=== PATIENT | male | born 1960 | race Caucasian/White ===

== ENCOUNTER 2018-11-19 11:24 | Outpatient (CLI) | payer BC | END 2018-11-19 23:59 | disposition home or self-care (01) | LOC: STAR 11:24 | PROVIDERS: ATTEND Surgery Vascular Surgery | DX: Z01.818 Encounter for other preprocedural examination (principal); I71.4 Abdominal aortic aneurysm, without rupture; R94.31 Abnormal electrocardiogram [ECG] [EKG] | CPT/HCPCS: 36415; 80053; 85025; 93005 ==

== ENCOUNTER 2018-11-24 07:30 | Inpatient (IN) | payer BC ==
[~2018-11-24] VITALS: Ht 182.9 cm; Wt 101.3 kg
[2018-11-25 09:45] VITALS: BP 132/81
== END 2018-11-25 11:07 | disposition home or self-care (01) | DRG 269 ==
LOC: ORIP 10:59 → 4NOR 16:20 → DCLOUNGE 11-25 10:49
PROVIDERS: ADMIT Surgery Vascular Surgery; ATTEND Surgery Vascular Surgery
PROC: 04V03DZ Restriction of Abdominal Aorta with Intraluminal Device, Percutaneous Approach (ICD-10-PCS; principal; 2018-11-24)
PROC: B4101ZZ Fluoroscopy of Abdominal Aorta using Low Osmolar Contrast (ICD-10-PCS; 2018-11-24)
DX: I71.4 Abdominal aortic aneurysm, without rupture (principal); I10 Essential (primary) hypertension; J44.9 Chronic obstructive pulmonary disease, unspecified; G89.29 Other chronic pain
CPT/HCPCS: 36415; S0077; 34705; 34812; 80048; 85025; 86850; 86900; C1725; G0378; J0690; J1100; J1644; J2405; J2704; J2720; J3010; C1751; C1768; C1769; C1894; J2270; J3480